=== PATIENT | female | born 2005 | race Caucasian/White ===

== ENCOUNTER 2024-01-26 23:41 | Emergency (ER) | payer BC ==
[~2024-01-26] VITALS: Ht 157.5 cm; Wt 90.7 kg
[2024-01-26 23:50] VITALS: BP_SYST 130; PULSE 99; RESP 20; TEMP 98.8; O2SAT 100
[2024-01-27 00:53] LABS: BILIRUBIN,URINE NEGATIVE (NEGATIVE); COLOR,URINE YELLOW (YELLOW); GLUCOSE,URINE NEGATIVE (NEGATIVE); KETONES,URINE NEGATIVE (NEGATIVE); LEUKOCYTE ESTERASE ,URINE 1+ (NEGATIVE); NITRITE, URINE NEGATIVE (NEGATIVE); PROTEIN URINE NEGATIVE (NEGATIVE); UROBILINOGEN,URINE 0.2 (0.2-1.0)
[2024-01-27 01:09] LABS: BLOOD, URINE TRACE (NEGATIVE); CLARITY/URINE SLIGHTLY CLOUDY (CLEAR)
[2024-01-27 01:10] LABS: BACTERIA,URINE FEW /HPF (None Seen)
[2024-01-27 01:11] LABS: TRICHOMONAS,URINE Rare /HPF (None Seen)
== END 2024-01-27 01:30 | disposition left against medical advice (07) ==
LOC: SED 23:41
DX: R10.10 Upper abdominal pain, unspecified (principal); Z53.21 Procedure and treatment not carried out due to patient leaving prior to being seen by health care provider
CPT/HCPCS: 81000; 81001; 81015; 87086